=== PATIENT | female | born 1990 | race Caucasian/White ===

== ENCOUNTER → 2017-02-02 18:05 | Emergency (ER) | payer BC ==
[2017-02-02 19:43] VITALS: BP 110/68
== END | disposition left against medical advice (07) ==
LOC: ED 18:05
DX: K08.89 Other specified disorders of teeth and supporting structures (principal)

== ENCOUNTER 2017-10-05 12:09 | Emergency (ER) | payer SELFPAY ==
[2017-10-05 15:08] VITALS: BP 134/71
--- NOTE | 2017-10-05 15:24 | UC ---
FLU HPI - HPI Summary HPI Summary: Monday had a sudden on set of body aches and fatigue, has had cough and fever - History of Current Complaint Chief Complaint: UCRespiratory Stated Complaint: SORE THROAT COUGH Time Seen by Provider: 10/05/17 14:48 Hx Obtained From: Patient Hx Last Menstrual Period: one month ago ?: No Onset/Duration: Sudden Onset, Lasting Days - 3 Severity Currently: Moderate Severity Initially: Moderate Pain Intensity: 7 Pain Scale Used: 0-10 Numeric Associated Signs & Symptoms: Positive: Fever, Myalgia, Cough, Sore Throat, Nasal Congestion, Headache - Allergy/Home Medications Allergies/Adverse Reactions: Allergies Allergy/AdvReac Type Severity Reaction Status Date / Time MS Sulfamethoxazole Allergy Intermediate Hives Verified 10/05/17 15:08 w/Trimethoprim [From Bactrim] PMH/Surg Hx/FS Hx/Imm Hx Previously Healthy: Yes - Surgical History Surgical History: None - Family History Known Family History: Positive: None - Social History Occupation: Employed Full-time Lives: With Family Alcohol Use: None Substance Use Type: None Smoking Status (MU): Former Smoker Type: Cigarettes Amount Used/How Often: 2 CIGARETTES Length of Time of Smoking/Using Tobacco: 1 YEARS Have You Smoked in the Last Year: No When Did the Patient Quit Smoking/Using Tobacco: 1 month ago - Immunization History Most Recent Influenza Vaccination: 06/30/15 Most Recent Tetanus Shot: 10/13/15 Most Recent Pneumonia Vaccination: never Review of Systems Constitutional: Fever, Chills, Fatigue Skin: Negative Eyes: Negative ENT: Sore Throat, Ear Ache, Nasal Discharge Respiratory: Cough Cardiovascular: Negative Gastrointestinal: Negative Genitourinary: Negative Motor: Negative Neurovascular: Negative Musculoskeletal: Arthralgia, Myalgia Neurological: Headache Psychological: Negative Is Patient Immunocompromised?: No All Other Systems Reviewed And Are Negative: Yes Physical Exam Triage Information Reviewed: Yes Appearance: Well-Nourished, Ill-Appearing - mild, Pain Distress - mild Vital Signs: Initial Vital Signs Temp 99.5 F 10/05/17 15:04 Pulse 88 10/05/17 15:04 Resp 12 10/05/17 15:04 BP 134/71 10/05/17 15:04 Pulse Ox 97 10/05/17 15:04 Vital Signs Reviewed: Yes Eye Exam: Normal Eyes: Positive: Conjunctiva Clear ENT Exam: Normal ENT: Positive: Normal ENT inspection, Hearing grossly normal, Pharynx normal, TMs normal, Uvula midline. Negative: Nasal congestion, Tonsillar swelling, Tonsillar exudate, Trismus, Muffled voice, Hoarse voice, Dental tenderness, Sinus tenderness Dental Exam: Normal Neck exam: Normal Neck: Positive: Supple, Nontender Respiratory Exam: Normal Respiratory: Positive: Chest non-tender, Lungs clear, Normal breath sounds, No respiratory distress, No accessory muscle use Cardiovascular Exam: Normal Cardiovascular: Positive: RRR, No Murmur, Pulses Normal, Brisk Capillary Refill Musculoskeletal Exam: Normal Musculoskeletal: Positive: Strength Intact, ROM Intact, No Edema Neurological Exam: Normal Neurological: Positive: Alert, Muscle Tone Normal Psychological Exam: Normal Skin Exam: Normal Diagnostics - Laboratory Diagnostic Studies Completed/Ordered: influenza A (+) Influenza B(-), Strep (-) Flu Course/Dx - Course Course Of Treatment: rest , tylenol, ibuprofen, increase fluids, follow with pcp - Differential Dx/Diagnosis Provider Diagnoses: Influenza A Discharge - Discharge Plan Condition: Stable Disposition: HOME Patient Education Materials: Influenza (ED) Forms: *Work Release Referrals: Kimberly Bill MD [Primary Care Provider] - If Needed
== END 2017-10-05 15:57 | disposition home or self-care (01) ==
LOC: UCEAST 12:09
DX: J10.1 Influenza due to other identified influenza virus with other respiratory manifestations (principal); Z88.2 Allergy status to sulfonamides; Z87.891 Personal history of nicotine dependence
CPT/HCPCS: 87502; 99211; G0463

== ENCOUNTER 2018-04-08 09:24 | Emergency (ER) | payer SELFPAY ==
[2018-04-08 09:31] VITALS: BP 129/78
[2018-04-08] MEDS ORDERED: HYDROcodone/ACETAMIN 5-325 MG* 1 TAB PO ONE (10:36)
--- NOTE | 2018-04-08 10:42 | UC ---
UC Dental HPI - HPI Summary HPI Summary: broken molar in the posterior right upper jaw, mild erythema of the gum line, cervical lymphadenopathy of the right side of neck noted. increasing pain over the past few days - History of Current Complaint Chief Complaint: UCDentalProblem Stated Complaint: TOOTH PAIN Time Seen by Provider: 04/08/18 10:30 Hx Obtained From: Patient Hx Last Menstrual Period: one month ago ?: No Onset/Duration: Sudden Onset, Lasting Days Severity: Severe Pain Intensity: 10 Aggravating Factor(s): Chewing Alleviating Factor(s): Nothing Related History: Previous Dental Care on Same Tooth, Swelling - Allergies/Home Medications Allergies/Adverse Reactions: Allergies Allergy/AdvReac Type Severity Reaction Status Date / Time sulfamethoxazole Allergy Hives Verified 04/08/18 10:16 [From Bactrim] trimethoprim [From Bactrim] Allergy Hives Verified 04/08/18 10:16 Home Medications: Home Medications Ibuprofen TAB* [Motrin TAB* 800 MG] 800 mg PO Q6H 04/08/18 [History Confirmed ] PMH/Surg Hx/FS Hx/Imm Hx Previously Healthy: Yes - Surgical History Surgical History: None - Family History Known Family History: Positive: None - Social History Alcohol Use: Rare Substance Use Type: None Smoking Status (MU): Former Smoker Type: Cigarettes Amount Used/How Often: 2 CIGARETTES Length of Time of Smoking/Using Tobacco: 1 YEARS Have You Smoked in the Last Year: No When Did the Patient Quit Smoking/Using Tobacco: 1 month ago - Immunization History Most Recent Influenza Vaccination: 06/30/15 Most Recent Tetanus Shot: 10/13/15 Most Recent Pneumonia Vaccination: never Review of Systems Constitutional: Negative Skin: Negative Eyes: Negative ENT: Dental Pain, Sore Throat, Ear Ache Respiratory: Negative Cardiovascular: Negative Genitourinary: Negative Motor: Negative Neurovascular: Negative Musculoskeletal: Negative Neurological: Headache Psychological: Negative Is Patient Immunocompromised?: No All Other Systems Reviewed And Are Negative: Yes Physical Exam Triage Information Reviewed: Yes Appearance: Well-Nourished, Ill-Appearing, Pain Distress Vital Signs: Initial Vital Signs Temp 97.8 F 04/08/18 09:27 Pulse 92 04/08/18 09:27 Resp 18 04/08/18 09:27 BP 129/78 04/08/18 09:27 Pulse Ox 99 04/08/18 09:27 Vital Signs Reviewed: Yes Eye Exam: Normal ENT: Positive: Pharyngeal erythema Dental: Positive: Dental Fracture @, Cervical Lymphadenopathy Neck exam: Normal Neck: Positive: Supple, Nontender, Enlarged Nodes @ - right cervical Respiratory Exam: Normal Respiratory: Positive: Chest non-tender, Lungs clear, Normal breath sounds Cardiovascular Exam: Normal Cardiovascular: Positive: RRR, No Murmur, Pulses Normal Abdominal Exam: Normal Abdomen Description: Positive: Nontender, No Organomegaly, Soft Bowel Sounds: Positive: Present Musculoskeletal Exam: Normal Musculoskeletal: Positive: Strength Intact, ROM Intact Neurological Exam: Normal Neurological: Positive: Alert Psychological Exam: Normal Skin Exam: Normal Dental Complaint Course/Dx - Course Course Of Treatment: hx obtained, exam performed ,meds reviewed, treated for infection and pain, follow up with a dentist. - Differential Dx/Diagnosis Provider Diagnoses: dental fracture,. dental infection Discharge - Sign-Out/Discharge Documenting (check all that apply): Patient Departure - Discharge Plan Condition: Stable Disposition: HOME Prescriptions: Amoxicillin PO (*) [Amoxicillin 875 MG (*)] 875 mg PO BID #20 tab Patient Education Materials: Toothache (ED) Referrals: Kimberly Bill MD [Primary Care Provider] - Additional Instructions: 1. take the medication as prescribed. 2. Salt water gargle or coconut oil gargles mutliple times a day 3. use 400 mg of advil with 650 of tylenol every 4-6 hours for pain, use the NORco for severe pain. 5. Follow up with the dentist as soon as possible. - Billing Disposition and Condition Condition: STABLE Disposition: Home
== END 2018-04-08 11:17 | disposition home or self-care (01) ==
LOC: UCEAST 09:24
DX: K03.81 Cracked tooth (principal); K04.7 Periapical abscess without sinus; R59.0 Localized enlarged lymph nodes; Z88.2 Allergy status to sulfonamides; Z87.891 Personal history of nicotine dependence
CPT/HCPCS: 99212; G0463

== ENCOUNTER 2019-03-03 17:27 | Emergency (ER) | payer SELFPAY ==
[2019-03-03] MEDS ORDERED: Fluorescein Sodium TOPICAL* 1 MG TEST STRIP OPHTHALMIC ONE (18:03)
[2019-03-03] MEDS ORDERED: Tetracaine 0.5% OPTH.SOL 4 ML* 1 DROP BTL ONE (18:03)
[2019-03-03] MEDS ORDERED: Erythromycin OPTH OINT* APPLIC OINT RIGHT EYE ONE (18:32)
--- NOTE | 2019-03-03 18:33 | ED ---
Throat Pain/Nasal Congestion - HPI Summary HPI Summary: 28-year-old female presents with right eye foreign body. She states that may have gotten something in her eye. States feels like his right under her eyelid. She denies any drainage from the eye. does not wear contacts of glasses. No change in vision. - History of Current Complaint Chief Complaint: EDEyeProblem Time Seen by Provider: 03/03/19 17:49 - Allergies/Home Medications Allergies/Adverse Reactions: Allergies Allergy/AdvReac Type Severity Reaction Status Date / Time sulfamethoxazole Allergy Hives Verified 03/03/19 17:33 [From Bactrim] trimethoprim [From Bactrim] Allergy Hives Verified 03/03/19 17:33 PMH/Surg Hx/FS Hx/Imm Hx Endocrine/Hematology History: Reports: Hx Anemia - related Denies: Hx Diabetes, Hx Thyroid Disease Cardiovascular History: Denies: Hx Hypertension, Hx Pacemaker/ICD Respiratory History: Denies: Hx Asthma, Hx Chronic Obstructive Pulmonary Disease (COPD) GI History: Denies: Hx Ulcer Sensory History: Denies: Hx Hearing Aid Neurological History: Reports: Other Neuro Impairments/Disorders - Vertigo in past Denies: Hx Dementia, Hx Developmental Delay, Hx Headaches, Hx Migraine, Hx Nerve Disease, Hx Seizures, Hx Spinal Cord Injury, Hx Transient Ischemic Attacks (TIA) Psychiatric History: Denies: Hx Panic Disorder - Immunization History Date of Tetanus Vaccine: unknown Infectious Disease History: No Infectious Disease History: Denies: Hx Clostridium Difficile, Hx Hepatitis, Hx Human Immunodeficiency Virus (HIV), Hx of Known/Suspected MRSA, Hx Shingles, Hx Tuberculosis, Hx Known/ Suspected VRE, Hx Known/Suspected VRSA, History Other Infectious Disease, Traveled Outside the [place] in Last 30 Days - Family History Known Family History: Positive: None - Social History Alcohol Use: Rare Substance Use Type: Reports: None Smoking Status (MU): Light Every Day Tobacco Smoker Type: Cigarettes Amount Used/How Often: 2 CIGARETTES Length of Time of Smoking/Using Tobacco: 1 YEARS Have You Smoked in the Last Year: No Review of Systems Negative: Fever Negative: Chest Pain Negative: Shortness Of Breath All Other Systems Reviewed And Are Negative: Yes Physical Exam Triage Information Reviewed: Yes Vital Signs On Initial Exam: Initial Vitals Temp Pulse Resp BP Pulse Ox 97.8 F 73 18 112/83 99 03/03/19 17:30 03/03/19 17:30 03/03/19 17:30 03/03/19 17:30 03/03/19 17:30 Vital Signs Reviewed: Yes Appearance: Positive: Well-Appearing Skin: Positive: Warm, Dry Head/Face: Positive: Normal Head/Face Inspection Eyes: Positive: Normal, EOMI, ALTAF, Conjunctiva Inflammed, Other: - foreign body under right upper eyelid ENT: Positive: Normal ENT inspection, Pharynx normal, TMs normal Respiratory/Lung Sounds: Positive: Clear to Auscultation, Breath Sounds Present Cardiovascular: Positive: Normal, RRR Musculoskeletal: Positive: Normal Neurological: Positive: Normal Psychiatric: Positive: Normal Procedures - Eye Procedure right Alcaine Drops Administered: Yes Eye FB Removal: removal w/ cotton swab Diagnostics - Vital Signs Vital Signs Temp Pulse Resp BP Pulse Ox 03/03/19 17:30 97.8 F 73 18 112/83 99 - Laboratory Lab Statement: Any lab studies that have been ordered have been reviewed, and results considered in the medical decision making process. EENT Course/Dx - Course Course Of Treatment: 28-year-old female presents with right eye foreign body. She states that may have gotten something in her eye. States feels like his right under her eyelid. She denies any drainage from the eye. does not wear contacts of glasses. No change in vision. On exam has foreign body under right eyelid. Removed foreign body with Q-tip. No uptake on fluorescein exam. We'll place on erythromycin. Patient understands agrees with plan. - Diagnoses Provider Diagnoses: Foreign body of right eye Discharge - Sign-Out/Discharge Documenting (check all that apply): Patient Departure Patient Received Moderate/Deep Sedation with Procedure: No - Discharge Plan Condition: Good Disposition: HOME Patient Education Materials: Eye Foreign Body (ED) Referrals: Kimberly Bill MD [Primary Care Provider] - Additional Instructions: Place ointment on eye three times a day for 3 days Use artificial tears or saline to rinse eye for symptomatic relief Take Tylenol or ibuprofen for pain every 6 hours Follow up with ophthalmology if no improvement Return to ED if develop any new or worsening symptoms - Billing Disposition and Condition Condition: GOOD Disposition: Home
[2019-03-03 19:50] VITALS: BP 116/69
== END 2019-03-03 19:00 | disposition home or self-care (01) ==
LOC: ED 17:27
DX: T15.91XA Foreign body on external eye, part unspecified, right eye, initial encounter (principal); X58.XXXA Exposure to other specified factors, initial encounter; Z88.1 Allergy status to other antibiotic agents; Z88.2 Allergy status to sulfonamides; F17.210 Nicotine dependence, cigarettes, uncomplicated
CPT/HCPCS: 99281; A9270-GY

== ENCOUNTER 2019-05-22 07:38 | Emergency (ER) | payer SELFPAY ==
[2019-05-22 07:46] VITALS: BP 129/84
--- NOTE | 2019-05-22 08:55 | UC ---
Complaint Female HPI - HPI Summary HPI Summary: 2 DAYS OF DYSURIA, FREQUENCY AND URGENCY. NO FEVER, BACK PAIN, NAUSEA. - History Of Current Complaint Chief Complaint: UCGU Stated Complaint: UNRINARY COMPLAINT Time Seen by Provider: 05/22/19 08:13 Hx Obtained From: Patient Hx Last Menstrual Period: iud Onset/Duration: Gradual Onset, Lasting Days, Still Present Timing: Constant Severity Initially: Moderate Severity Currently: Moderate Pain Intensity: 0 Pain Scale Used: 0-10 Numeric Character: Burning Aggravating Factor(s): Urination Alleviating Factor(s): Nothing Associated Signs And Symptoms: Positive: Negative - Allergies/Home Medications Allergies/Adverse Reactions: Allergies Allergy/AdvReac Type Severity Reaction Status Date / Time sulfamethoxazole Allergy Hives Verified 05/22/19 07:46 [From Bactrim] trimethoprim [From Bactrim] Allergy Hives Verified 05/22/19 07:46 PMH/Surg Hx/FS Hx/Imm Hx Previously Healthy: Yes - Surgical History Surgical History: None - Family History Known Family History: Positive: None - Social History Alcohol Use: Rare Substance Use Type: None Smoking Status (MU): Light Every Day Tobacco Smoker Type: Cigarettes Amount Used/How Often: 2 CIGARETTES Length of Time of Smoking/Using Tobacco: 1 YEARS Have You Smoked in the Last Year: No When Did the Patient Quit Smoking/Using Tobacco: 1 month ago - Immunization History Most Recent Influenza Vaccination: 06/30/15 Most Recent Tetanus Shot: 10/13/15 Most Recent Pneumonia Vaccination: never Review of Systems All Other Systems Reviewed And Are Negative: Yes Constitutional: Positive: Negative Respiratory: Positive: Negative Cardiovascular: Positive: Negative Gastrointestinal: Positive: Negative Genitourinary: Positive: Dysuria, Frequency, Urgency Physical Exam Triage Information Reviewed: Yes Appearance: Well-Appearing, No Pain Distress, Well-Nourished Vital Signs: Initial Vital Signs Temp 97.3 F 05/22/19 07:42 Pulse 72 05/22/19 07:42 Resp 18 05/22/19 07:42 BP 129/84 05/22/19 07:42 Pulse Ox 99 05/22/19 07:42 Laboratory Tests 05/22/19 08:02 POC Urine Color Rachel POC Urine Clarity Cloudy POC Urine pH 6.0 POC Ur Specif Neligh >= 1.030 POC Urine Protein 2+ A POC Ur Glucose (UA) Negative POC Urine Ketones Negative POC Urine Blood 3+ A POC Urine Nitrite Negative POC Urine Bilirubin 1+ A POC Urine Urobilinogen 1.0 POC U Leukocyte Esteras 1+ A Vital Signs Reviewed: Yes Eyes: Positive: Conjunctiva Clear ENT: Positive: Hearing grossly normal Neck: Positive: Supple Respiratory: Positive: No respiratory distress, No accessory muscle use Cardiovascular: Positive: Pulses Normal Abdomen Description: Positive: Soft. Negative: CVA Tenderness (R), CVA Tenderness (L), Distended, Guarding Musculoskeletal: Positive: No Edema Neurological: Positive: Alert Psychological: Positive: Age Appropriate Behavior Skin: Negative: Rashes Complaint Female Dx - Differential Dx/Diagnosis Provider Diagnosis: UTI (urinary tract infection) Discharge ED - Sign-Out/Discharge Documenting (check all that apply): Patient Departure All imaging exams completed and their final reports reviewed: No Studies - Discharge Plan Condition: Stable Disposition: HOME Prescriptions: Ciprofloxacin TAB* [Cipro 500 MG TAB*] 500 mg PO BID #10 tab Phenazopyridine TAB* [Pyridium TAB*] 200 mg PO TID #6 tab Patient Education Materials: Urinary Tract Infection in Women (ED) Referrals: Kimberly Bill MD [Primary Care Provider] - If Needed - Billing Disposition and Condition Condition: STABLE Disposition: Home
== END 2019-05-22 08:28 | disposition home or self-care (01) ==
LOC: UCEAST 07:38
DX: N39.0 Urinary tract infection, site not specified (principal); F17.210 Nicotine dependence, cigarettes, uncomplicated; Z88.2 Allergy status to sulfonamides
CPT/HCPCS: 81003; 87077; 87086; 87186; 99212; G0463

== ENCOUNTER 2019-07-26 11:30 | Emergency (ER) | payer MEDICAID ==
[2019-07-26 13:12] VITALS: BP 136/80
--- NOTE | 2019-07-26 13:43 | UC ---
Dental HPI - HPI Summary HPI Summary: She's had 2 days of left upper toothache. The pain has been intermittent - History of Current Complaint Chief Complaint: UCDentalProblem Stated Complaint: DENTAL COMPLAINT Time Seen by Provider: 07/26/19 13:25 Hx Obtained From: Patient Hx Last Menstrual Period: doesn't get - has mirena Onset/Duration: Gradual Onset Severity: Severe - Intermittently Pain Intensity: 0 Aggravating Factor(s): Nothing Alleviating Factor(s): Nothing - Allergies/Home Medications Allergies/Adverse Reactions: Allergies Allergy/AdvReac Type Severity Reaction Status Date / Time sulfamethoxazole Allergy Hives Verified 07/26/19 13:12 [From Bactrim] trimethoprim [From Bactrim] Allergy Hives Verified 07/26/19 13:12 Home Medications: Home Medications Ibuprofen TAB* [Advil TAB*] 1,200 mg PO ONCE PRN 07/26/19 [History Confirmed ] Levonorgestrel (Iud) [Mirena IUD] 20 mcg IU 07/26/19 [History] PMH/Surg Hx/FS Hx/Imm Hx Previously Healthy: Yes - Surgical History Surgical History: None - Family History Known Family History: Positive: None - Social History Alcohol Use: Rare Substance Use Type: None Smoking Status (MU): Light Every Day Tobacco Smoker Type: Cigarettes Amount Used/How Often: 2 CIGARETTES/day Length of Time of Smoking/Using Tobacco: 1 YEARS Have You Smoked in the Last Year: No When Did the Patient Quit Smoking/Using Tobacco: 1 month ago - Immunization History Most Recent Influenza Vaccination: 06/30/15 Most Recent Tetanus Shot: 10/13/15 Most Recent Pneumonia Vaccination: never Review of Systems All Other Systems Reviewed And Are Negative: Yes Constitutional: Positive: Negative ENT: Positive: Dental Pain Physical Exam - Summary Physical Exam Summary: She is nontoxic in appearance with stable vitals. Triage Information Reviewed: Yes Appearance: Well-Appearing, Obese Vital Signs: Initial Vital Signs Temp 98.4 F 07/26/19 13:08 Pulse 75 07/26/19 13:08 Resp 15 07/26/19 13:08 BP 136/80 07/26/19 13:08 Pulse Ox 100 07/26/19 13:08 Vital Signs Reviewed: Yes ENT Exam: Normal Dental: Positive: Percussion Tenderness @ - Ofcellulitisorabscess Neck exam: Normal Dental Complaint Course/Dx - Course Course Of Treatment: She was too thick and I will treat her with Pen-Vee K and tramadol - Differential Dx/Diagnosis Provider Diagnosis: Toothache Discharge ED - Sign-Out/Discharge Documenting (check all that apply): Patient Departure All imaging exams completed and their final reports reviewed: No Studies - Discharge Plan Condition: Stable Disposition: HOME Patient Education Materials: Toothache (ED) Referrals: Kimberly Bill MD [Primary Care Provider] - Additional Instructions: Please follow up with the dentist next week - Billing Disposition and Condition Condition: STABLE Disposition: Home
== END 2019-07-26 13:52 | disposition home or self-care (01) ==
LOC: UCEAST 11:30
DX: K08.89 Other specified disorders of teeth and supporting structures (principal); F17.210 Nicotine dependence, cigarettes, uncomplicated; Z88.2 Allergy status to sulfonamides
CPT/HCPCS: 99212; G0463